=== PATIENT | female | born 1995 | race African-American/Black ===

== ENCOUNTER 2020-05-11 01:05 | Inpatient (IN) | payer OTHER ==
[2020-05-11] MEDS ORDERED: VANCOMYCIN 1 GM in D5W (PRE-DOCKED) 1,000 MG/250 ML IVPB ONE (02:13)
[2020-05-11] MEDS ORDERED: DEXTROSE 5%-LACTATED RINGERS 1,000 ML IV SCH (02:15)
--- NOTE | 2020-05-11 02:19 | HP ---
Past Medical History - Admission Chief Complaint: Contractions History of Present Illness: 24yo @ 38.4wks by LMP/sono here with contractions. No VB/LOF. +FM Seen earlier today when BIBA for LOF- closed and intact and sent home. PNC @ [facility] Care- with no visits in over 4 months. Noncompliant despite attempts to schedule her. 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: Alzheimer's, CVA, Dementia, Migraine, Multiple Sclerosis, Peripheral Neuropathy, Parkinson's, Seizure, Syncope, TIA, Vertigo, Other Cardiovascular: No: AFIB, Aneurysm, Aortic Insufficiency, Aortic Stenosis, CAD, CHF, Deep Vein Thrombosis, HTN, Hyperlipdemia, OH, Mitral Insufficiency, Mitral Stenosis, Murmur, Pulmonary Hypertension, Other Gastrointestinal: No: Ascites, Cancer, Constipation, Crohn's Disease, Diverticulitis, Diverticulosis, Esophageal Varices, Gastritis, GERD, GI Bleed, Hemorrhoids, Hiatal Hernia, Inflamatory Bowel Disease, Irritable Bowel Disease, Pancreatitis, Peptic Ulcer Disease, Ulcerative Colitis, Other Hepatobiliary: Yes: Hepatitis A Renal/: No: Renal Failure, Renal Inusuff, BPH, Cancer, Hematuria, Hemodialysis, Neurogenic Bladder, Renal Calculi, UTI, Other Reproductive: No: Ectopic , Endometriosis, Fibroids, PID, Polycystic Ovary Syndrome, Postmenopausal, Other ...: 4 ...Para: 2 ...Term: 2 ...: 0 ...Spon : 0 ...Induced : 1 ...Living Children: 2 ... Weeks Gestation by Dates: 38.4 Heme/Onc: Yes: Anemia Infectious Disease: No: AIDS, C-Diff, Herpes Zoster, HIV, MRSA, STD's, Tuberculosis, VREF, Other Psych: No: Addictions, Anxiety, Bipolar, Depression, Panic, Psychosis, Schizophrenia, Other Musculoskeletal: No: Bursitis, Chronic low back pain, Hemiparesis, Hemiplegia, Osteoarthritis, Paraplegia, Other Rheumatology: No: Fibromyalgia, Gout, Lupus, Rheumatoid Arthritis, Sarcoidosis, Vasculitis, Other ENT: No: Allergic Rhinitis, Sinusitis, Other - Past Surgical History Past Surgical History: Yes: None Hx Myomectomy: No Hx Transabdominal Cerclage: No - Smoking History Smoking history: Never smoked Have you smoked in the past 12 months: Yes - Alcohol/Substance Use History of Substance Use: reports: Marijuana - Social History Usual Living Arrangement: Yes: With Child Do you think of yourself as: Straight/Heterosexual ADL: Independent History of Recent Travel: No Home Medications - Allergies Allergies/Adverse Reactions: Allergies Allergy/AdvReac Type Severity Reaction Status Date / Time Penicillins Allergy Verified 05/11/20 02:09 - Home Medications Home Medications: Ambulatory Orders Vitamins (Sjr) - 1 tab PO DAILY 05/11/20 Review of Systems - Review of Systems Constitutional: reports: No Symptoms Cardiovascular: reports: No Symptoms Respiratory: reports: No Symptoms Physical Exam - Maternity Constitutional: Yes: Well Nourished, No Distress, Calm - Abdominal Exam/OB Number of Fetuses: Single Presentation: Vertex Contractions: Yes Regularity: Irregular Intensity: Mild/Mod Monitor Mode: External Heart Rate Location: [facility] Category: III Accelerations: Non-Uniform Decelerations: None - Vaginal Exam/OB Speculum Exam: No Dilatation (cm): 3-4 Effacement (%): 100 Amniotic Membrane Status: Intact Presentation: Vertex/Position Station: -3 Problem List - Problems (1) 38 weeks gestation of Code(s): Z3A.38 - 38 WEEKS GESTATION OF Assessment/Plan 24yo @ 38.4wks here in labor, elevated BPs Admit to L&D; unclear if BPs are pain related vs PEC. Pending labs and further eval, may need Magnesium intrapartum and/or Admission labs, including Covid and HELLP NPO, IVFs Epidural prn Urine Drug screen from earlier today positive for Marijuana Cat 1 tracing AROM/Pitocin prn Vanc for GBS unknown with PCN allergy Anticipate VALERIA Yu MD
[2020-05-11 02:30] LABS: BASO % 0.4 % (0-2.0); EOS % 1.1 % (0-4.5); HEMATOCRIT 38.6 % (32.4-45.2); HEMOGLOBIN 12.8 GM/dL (10.7-15.3); LYMPH % 19.2 % (8-40); MCH 29.6 pg (25.7-33.7); MCHC 33.2 g/dl (32.0-36.0); MEAN PLT VOLUME 11.3 fl (7.5-11.1); MONO % 8.2 % (3.8-10.2); NEUT % 71.1 % (42.8-82.8); PLATELET COUNT 169 K/MM3 (134-434); RBC 4.34 M/mm3 (3.60-5.2); RDW 14.5 % (11.6-15.6); WHITE BLOOD COUNT 13.9 K/mm3 (4.0-10.0)
[2020-05-11 02:31] LABS: RETICULOCYTES 1.37 % (0.5-1.5)
[2020-05-11 02:38] LABS: INR 0.91 (0.83-1.09); PROTHROMBIN TIME (PATIENT) 10.7 SEC (9.7-13.0)
[2020-05-11 02:40] LABS: ACTIVATED PTT 26.3 SECONDS (25.2-36.5)
[2020-05-11 02:49] LABS: BLOOD UREA NITROGEN 7.4 mg/dL (7-18); CALCIUM 9.1 mg/dL (8.5-10.1); CREATININE 0.5 mg/dL (0.55-1.3); POTASSIUM 3.8 mmol/L (3.5-5.1); URIC ACID 3.6 mg/dL (2.6-7.2)
[2020-05-11] MEDS ORDERED: OXYTOCIN 20 UNITS in 0.9% NS 20 UNIT/1,000 ML INFUS.BAG IV ONE ×2 (02:59→13:00)
[2020-05-11] MEDS ORDERED: LIDOCAINE HCL 1% PRESERVATIVE FREE - 30ML VIAL ONE (03:00)
[2020-05-11] MEDS: OXYTOCIN 20 UNITS in 0.9% NS 20 UNIT/1,000 ML INFUS.BAG IV SCH ×3 (03:23→13:23)
--- NOTE | 2020-05-11 03:30 | PN ---
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 38 week . No anes thesia. Body nuchal. No meconium. Spontaneous delivery of anterior shoulder and body. Cord clamped and cut by provider and FOB. Infant placed on mother's abdomen. Weight pending to allow skin to skin. Apgars 9/9. Spontaneous delivery of intact placenta with 3VC. Fundus firm. Perineum inspected, no lacerations. EBL 250. Mother and baby doing well. Jody Yu MD
[2020-05-11] MEDS ORDERED: METHYLERGONOVINE MALEATE 0.2 MG/1 ML AMP IM PRN (03:31)
[2020-05-11] MEDS ORDERED: BISACODYL 10 MG SUPP.RECT RC PRN (03:31)
[2020-05-11] MEDS ORDERED: BENZOCAINE 20% 57 GM BOTTLE TP PRN (03:31)
[2020-05-11] MEDS ORDERED: WITCH HAZEL 50% (TUCKS) 40 PAD/JAR PAD TP PRN (03:31)
[2020-05-11] MEDS ORDERED: IBUPROFEN 600 MG TABLET (FP) PO PRN (03:31)
[2020-05-11] MEDS ORDERED: BENZOCAINE 28 GM HEMORRHOIDAL OINTMENT TP PRN (03:31)
[2020-05-11] MEDS: ACETAMINOPHEN 325 MG TABLET (FP) PO PRN (03:40)
[2020-05-11 05:11] VITALS: BMI 27.3
[2020-05-11 05:30] LABS: PH,URINE 5.5 (5.0-8.0); URINE APPEARANCE TURBID; URINE BILIRUBIN 1+ (NEGATIVE); URINE COLOR RED; URINE GLUCOSE (UA) NEGATIVE (NEGATIVE); URINE KETONE NEGATIVE (NEGATIVE); URINE LEUK ESTERASE 1+ (NEGATIVE); URINE NITRITE NEGATIVE (NEGATIVE); URINE PROTEIN 2+ (NEGATIVE)
[2020-05-11 06:08] LABS: EPI CELLS 15 /uL (0-25.1); HYALINE CASTS 5 /uL (0-3.1); URINE RBC 31689 /uL (0-23.9); URINE WBC 84 /uL (0-25.8)
[2020-05-11] MEDS ORDERED: MAGNESIUM SULFATE 20GM/500ML - 20 GM/500 ML INFUS.BAG ONE (06:08)
[2020-05-11] MEDS ORDERED: MAGNESIUM 4GM/H20 - 4 GM/100 ML IVPB IVPB ONE (06:08)
[2020-05-11 06:09] LABS: URINE BACTERIA 14 /uL (0-1359)
[2020-05-11] MEDS ORDERED: MAGNESIUM 4GM/H20 - 4 GM/100 ML IVPB IVPB SCH (06:15)
[2020-05-11] MEDS ORDERED: MAGNESIUM SULFATE 20GM/500ML - 20 GM/500 ML INFUS.BAG IV SCH ×2 (06:15→13:04)
--- NOTE | 2020-05-11 06:17 | PN ---
Progress Note (short form) - Note Progress Note: Pr/Cr ration 2.2. SBPs still 130-150's Decision made to start Mag for seizure PPX. Possible HTN meds if persistently elevated Plan discussed with patient; questions answered Benton Yu MD Problem List - Problems (1) 38 weeks gestation of Code(s): Z3A.38 - 38 WEEKS GESTATION OF
[2020-05-11] MEDS ORDERED: LABETALOL HCL 200 MG TABLET (FP) PO PRN (06:35)
[2020-05-11] MEDS ORDERED: LABETALOL HCL 200 MG TABLET (FP) ONE ×2 (07:50→20:20)
[2020-05-11] MEDS: FERROUS SO4 325 MG TABLET (FP) PO SCH ×2 (08:07→20:03)
[2020-05-11] MEDS ORDERED: FERROUS SO4 325 MG TABLET (FP) PO SCH (10:00)
[2020-05-11] MEDS: PRENATAL VITAMINS W/ FOLIC ACID TABLET (FP) PO SCH (10:54)
[2020-05-11 15:07] LABS: COCAINE, UR NEGATIVE ng/ml (CUTOFF=300); METHADONE, UR NEGATIVE ng/ml (CUTOFF=300); OPIATES, URI NEGATIVE ng/ml (CUTOFF=300); PHENCYCLIDINE,URINE NEGATIVE ng/ml (CUTOFF=25); URINE AMPHETAMINES NEGATIVE ng/ml (CUTOFF=500); URINE BARBITURATES NEGATIVE ng/ml (CUTOFF=200)
[2020-05-11 15:09] LABS: URINE BENZODIAZEPINES NEGATIVE ng/ml (CUTOFF=200)
[2020-05-11] MEDS: LABETALOL HCL 100 MG TABLET (FP) PO SCH (20:20)
--- NOTE | 2020-05-11 20:29 | PN ---
Post Progress Note - Subjective Subjective: Ambulating, no H/A, no vision changes, no RUQ pain, no CP, no N/V. Desiring to eat and shower. Post Day: 0 Type of Delivery: Vital Signs: Vital Signs Temperature 98.4 F 05/11/20 20:00 Pulse Rate 76 05/11/20 20:00 Respiratory Rate 18 05/11/20 20:00 Blood Pressure 148/88 05/11/20 20:00 O2 Sat by Pulse Oximetry (%) 100 05/11/20 06:30 Breast Exam: Yes: Other Uterus: Yes: Fundus Firm Abdomen/GI: Yes: Abdomen soft (no epigastric pain) Lochia, amount: Moderate Extremities: Yes: Calves non-tender (2+DTR, no clonus) Activity: Ambulating - Labs Labs: CBC WBC 13.9 K/mm3 (4.0-10.0) H 05/11/20 02:15 RBC 4.34 M/mm3 (3.60-5.2) 05/11/20 02:15 Hgb 12.8 GM/dL (10.7-15.3) 05/11/20 02:15 Hct 38.6 % (32.4-45.2) 05/11/20 02:15 MCV 89.0 fl (80-96) 05/11/20 02:15 MCH 29.6 pg (25.7-33.7) 05/11/20 02:15 MCHC 33.2 g/dl (32.0-36.0) 05/11/20 02:15 RDW 14.5 % (11.6-15.6) 05/11/20 02:15 Plt Count 160 K/MM3 (134-434) 05/11/20 02:15 Plt Count 169 K/MM3 (134-434) 05/11/20 02:15 MPV 11.3 fl (7.5-11.1) H 05/11/20 02:15 Absolute Neuts (auto) 9.9 K/mm3 (1.5-8.0) H 05/11/20 02:15 Neutrophils % 71.1 % (42.8-82.8) 05/11/20 02:15 Lymphocytes % 19.2 % (8-40) 05/11/20 02:15 Monocytes % 8.2 % (3.8-10.2) 05/11/20 02:15 Eosinophils % 1.1 % (0-4.5) 05/11/20 02:15 Basophils % 0.4 % (0-2.0) 05/11/20 02:15 Nucleated RBC % 0 % (0-0) 05/11/20 02:15 Retic Count 1.37 % (0.5-1.5) 05/11/20 02:15 Assessment/Plan PPD # 0 S/P VD and BP in mild to normal range, asymptomatic, one isolated episode in severe range nirav- no requiring IV antihypertensive. Presentation consistent with PEC w/o severe features, labs WNL and S/P mag for > 12 hours. -D/C mag -Labetalol 300 mg BID -repeat AM labs
[2020-05-11] MEDS ORDERED: LABETALOL HCL 200 MG TABLET (FP) PO SCH (22:00)
--- NOTE | 2020-05-12 06:23 | PN ---
Post Progress Note - Subjective Subjective: Ambulating, tolerating PO, lochia decreased, no H/A, no vision changes, no epigastric pain, no leg swelling. Post Day: 1 Type of Delivery: Vital Signs: Vital Signs Temperature 98.0 F 05/12/20 02:00 Pulse Rate 73 05/12/20 02:00 Respiratory Rate 18 05/12/20 02:00 Blood Pressure 122/72 05/12/20 02:00 O2 Sat by Pulse Oximetry (%) 100 05/11/20 06:30 Breast Exam: Yes: Other Uterus: Yes: Fundus Firm Abdomen/GI: Yes: Abdomen soft (n/d, n/t, no rebound, no guarding) Lochia, amount: Moderate Extremities: Yes: Calves non-tender (2DTR, no clonus, trace edema) Activity: Ambulating - Labs Labs: CBC WBC 13.9 K/mm3 (4.0-10.0) H 05/11/20 02:15 RBC 4.34 M/mm3 (3.60-5.2) 05/11/20 02:15 Hgb 12.8 GM/dL (10.7-15.3) 05/11/20 02:15 Hct 38.6 % (32.4-45.2) 05/11/20 02:15 MCV 89.0 fl (80-96) 05/11/20 02:15 MCH 29.6 pg (25.7-33.7) 05/11/20 02:15 MCHC 33.2 g/dl (32.0-36.0) 05/11/20 02:15 RDW 14.5 % (11.6-15.6) 05/11/20 02:15 Plt Count 160 K/MM3 (134-434) 05/11/20 02:15 Plt Count 169 K/MM3 (134-434) 05/11/20 02:15 MPV 11.3 fl (7.5-11.1) H 05/11/20 02:15 Absolute Neuts (auto) 9.9 K/mm3 (1.5-8.0) H 05/11/20 02:15 Neutrophils % 71.1 % (42.8-82.8) 05/11/20 02:15 Lymphocytes % 19.2 % (8-40) 05/11/20 02:15 Monocytes % 8.2 % (3.8-10.2) 05/11/20 02:15 Eosinophils % 1.1 % (0-4.5) 05/11/20 02:15 Basophils % 0.4 % (0-2.0) 05/11/20 02:15 Nucleated RBC % 0 % (0-0) 05/11/20 02:15 Retic Count 1.37 % (0.5-1.5) 05/11/20 02:15 Assessment/Plan 24 y/o on PPD # 1 S/P VD, PEC without severe features, BP in normal range on labetalol 300mg BID, 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
[2020-05-12 07:19] LABS: BASO % 0.5 % (0-2.0); EOS % 1.2 % (0-4.5); HEMATOCRIT 34.8 % (32.4-45.2); HEMOGLOBIN 11.6 GM/dL (10.7-15.3); LYMPH % 21.2 % (8-40); MCH 29.9 pg (25.7-33.7); MCHC 33.4 g/dl (32.0-36.0); MEAN CELL VOLUME 89.4 fl (80-96); MONO % 6.7 % (3.8-10.2); NEUT % 70.4 % (42.8-82.8); PLATELET COUNT 166 K/MM3 (134-434); RBC 3.89 M/mm3 (3.60-5.2); RDW 14.3 % (11.6-15.6); WHITE BLOOD COUNT 13.3 K/mm3 (4.0-10.0)
[2020-05-12 07:41] LABS: ALBUMIN 2.9 g/dl (3.4-5.0); BILIRUBIN,TOTAL 0.4 mg/dL (0.2-1); BLOOD UREA NITROGEN 8.1 mg/dL (7-18); CALCIUM 8.2 mg/dL (8.5-10.1); CREATININE 0.5 mg/dL (0.55-1.3); POTASSIUM 4.4 mmol/L (3.5-5.1); TOT PROT 6.7 g/dl (6.4-8.2)
[2020-05-12] MEDS: FERROUS SO4 325 MG TABLET (FP) PO SCH ×2 (08:40→17:49)
[2020-05-12] MEDS: PRENATAL VITAMINS W/ FOLIC ACID TABLET (FP) PO SCH (10:55)
[2020-05-12] MEDS: LABETALOL HCL 100 MG TABLET (FP) PO SCH ×2 (11:21→21:52)
[2020-05-12] MEDS: ACETAMINOPHEN 325 MG TABLET (FP) PO PRN (21:54)
[2020-05-12] MEDS ORDERED: SENNOSIDES/DOCUSATE COMBO (SENNA PLUS) TABLET (UD) PO PRN (22:00)
[2020-05-13] MEDS: FERROUS SO4 325 MG TABLET (FP) PO SCH (08:16)
--- NOTE | 2020-05-13 10:04 | DS ---
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 No: Tenderness Renal/: Yes: WNL ....Post : Yes: Uterus firm, Uterus non-tender, Moderate lochia rubra Breast(s): Yes: WNL (bottle feeding) Musculoskeletal: Yes: WNL Extremities: Yes: WNL. No: Calf Tenderness (vascular study , no dvt identified) Edema: LLE: Trace, RLE: Trace Integumentary: Yes: WNL Wound/Incision: Yes: Clean/Dry Neurological: Yes: WNL ...Motor Strength: WNL Psychiatric: Yes: Other (cps involved . marijuana pos in urine) Labs: CBC, BMP 05/12/20 06:58 05/12/20 06:58 Laboratory Tests 05/11/20 05/11/20 05/11/20 01:54 02:15 10:34 AST ALT U Marijuana (THC) Screen Positive A* COVID-19 ([facility]) Not detected HIV Ag/Ab Combo Qual Negative 05/12/20 06:58 AST 44 H ALT 27 U Marijuana (THC) Screen COVID-19 ([facility]) HIV Ag/Ab Combo Qual Delivery - Delivery Vaginal Delivery: Spontaneous Type of Anesthesia: None Episiotomy/Laceration: None EBL (cc): 250 Delivery, Single - Stages of Labor Date 1st Stage Initiatied: 05/10/20 Time 1st Stage Initiated: 19:00 Date 2nd Stage Initiated: 07/13/20 Time 2nd Stage Initiated: 03:11 Date of Delivery: 05/11/20 Time of Delivery: 03:19 Time Placenta Delivered: 03:23 Placenta: Yes: Spontaneous - 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 Gender: Male Weight: 7 lb 4 oz Position: Right, OA Total Hours ROM (Hrs/Mins): 12MIN - 5 Minutes Total Score: 9 1 Minute Total Score: 9 - Ross Feeding Plan Initial Plan: Elected not to breastfeed exclusively throughout hospitalization Benefits of Exclusively reinforced: No Remarks - Remarks Remarks: pp MgSo4 therapy was given for suspected Preclempsia & placed on PO labetalol 300 mg bid dvt study neg pt awaiting cps approval to be discharged pp instructions given wii iirtc 1 wk for f/u BP Discharge Summary Problems reviewed: Yes Reason For Visit: LABOR ADMIT Condition: Stable - Instructions Diet, Activity, Other Instructions: Regular Diet Follow up in one week for a blood pressure check Referrals: Jody Yu MD [Staff Physician] - Disposition: HOME - Home Medications Comprehensive Discharge Medication List: Ambulatory Orders Breast Pump 1 each MC 5XD 30 Days #1 each 05/11/20 Ferrous Sulfate [Feosol] 325 mg PO DAILY #30 tablet 05/11/20 Ibuprofen 600 mg PO Q6H PRN #30 tablet 05/11/20 Vitamins (Sjr) - 1 tab PO DAILY 05/11/20 Labetalol HCl [Normodyne -] 300 mg PO BID #60 tablet 05/13/20
[2020-05-13] MEDS: LABETALOL HCL 100 MG TABLET (FP) PO SCH (10:24)
[2020-05-13] MEDS: PRENATAL VITAMINS W/ FOLIC ACID TABLET (FP) PO SCH (10:25)
[2020-05-13 10:49] VITALS: TEMP 98.2
[2020-05-13 11:49] VITALS: BP 124/79; PULSE 80
== END 2020-05-13 12:30 | disposition home or self-care (01) | DRG 560 ==
LOC: JDEL 01:05 → JLDR 01:40 → J3W 20:45
PROVIDERS: ADMIT Obstetrics & Gynecology; ATTEND Obstetrics & Gynecology
PROC: 10E0XZZ Delivery of Products of Conception, External Approach (ICD-10-PCS; principal; 2020-05-11)
PROC: 3E033VJ Introduction of Other Hormone into Peripheral Vein, Percutaneous Approach (ICD-10-PCS; 2020-05-11)
PROC: 10907ZC Drainage of Amniotic Fluid, Therapeutic from Products of Conception, Via Natural or Artificial Opening (ICD-10-PCS; 2020-05-11)
DX: O14.94 Unspecified pre-eclampsia, complicating childbirth (principal); O99.323 Drug use complicating pregnancy, third trimester; F12.10 Cannabis abuse, uncomplicated; Z3A.38 38 weeks gestation of pregnancy; Z37.0 Single live birth; Z86.2 Personal history of diseases of the blood and blood-forming organs and certain disorders involving the immune mechanism; Z86.19 Personal history of other infectious and parasitic diseases; Z91.19 Patient's noncompliance with other medical treatment and regimen
CPT/HCPCS: 36415; 59409; 80048; 80053; 80307; 81003; 82565; 82977; 83010; 83735; 84156; 84450; 84460; 84550; 85025; 85032; 85044; 85610; 85730; 86780; 86850; 86900; 86901; 87389; 93970-TC; U0003